=== PATIENT | female | born 1970 | race Caucasian/White ===

== ENCOUNTER 2021-06-29 23:16 | Emergency (ER) | payer OTHER ==
[~2021-06-29] VITALS: Ht 167.6 cm; Wt 97.3 kg
[2021-06-30] MEDS ORDERED: CLINDAMYCIN HCL 150 MG CAPSULE PO ONE (00:30)
[2021-06-30] MEDS ORDERED: DIPHTH,PERTUSS(ACELL),TET TOX 0.5 ML DISP.SYRIN. VAX IM ONE (00:30)
[2021-06-30 00:48] LABS: BASO # 0.1 x10^3/uL (0.0-0.2); BASO % 1 % (0-3); EOS # 0.1 x10^3/uL (0.0-0.7); EOS % 1 % (0-3); HEMATOCRIT 37.3 % (36.0-47.0); HEMOGLOBIN 12.5 g/dL (12.0-15.5); LYMPH # 2.1 x10^3/uL (1.0-4.8); LYMPH % 14 % (24-48); MEAN CORPUSCULAR HEMOGLOBIN 30 pg (25-35); MEAN CORPUSCULAR HGB CONC 34 g/dL (31-37); MEAN CORPUSCULAR VOLUME 91 fL (79-100); MONO # 1.1 x10^3/uL (0.0-1.1); MONO % 7 % (0-9); NEUT # 11.9 x10^3uL (1.8-7.7); NEUT % 77 % (31-73); PLATELET COUNT 257 x10^3/uL (140-400); RED BLOOD COUNT 4.12 x10^6/uL (3.50-5.40); RED CELL DISTRIBUTION WIDTH 14.3 % (11.5-14.5); WHITE BLOOD COUNT 15.3 x10^3/uL (4.0-11.0)
[2021-06-30] MEDS ORDERED: IV NORMAL SALINE 50ML 50 ML ONE (00:52)
[2021-06-30] MEDS ORDERED: cefTRIAXone SODIUM 1 GM VIAL ONE (00:52)
[2021-06-30 01:03] LABS: % BANDS 3 % (0-9); % EOS 1 % (0-5); % LYMPHS 20 % (24-48); % MONOS 4 % (0-10); % SEGS 72 % (35-66); PLT ESTIMATE ADEQUATE (ADEQUATE)
[2021-06-30 01:29] LABS: ALBUMIN 3.1 g/dL (3.4-5.0); ALBUMIN/GLOBULIN RATIO 0.7 (1.0-1.7); CREATININE 0.8 mg/dL (0.6-1.0); GFR 76.2; POTASSIUM 3.7 mmol/L (3.5-5.1); TOTAL BILIRUBIN 0.4 mg/dL (0.2-1.0); TOTAL PROTEIN 7.3 g/dL (6.4-8.2)
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
[2021-06-30] MEDS ORDERED: CLIN-95 PO (02:15)
[2021-06-30] MEDS ORDERED: FLUC100T7 PO (02:15)
[2021-06-30 02:45] VITALS: BP 140/86
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
== END 2021-06-30 03:03 | disposition home or self-care (01) ==
LOC: ER 23:16
DX: L03.114 Cellulitis of left upper limb (principal); F17.210 Nicotine dependence, cigarettes, uncomplicated
CPT/HCPCS: 36415; 73130; 80053; 83605; 85007; 85025; 90471; 90715; 96365; 99284; J0696